=== PATIENT | female | born 1975 | race Caucasian/White ===

== ENCOUNTER 2016-11-30 09:33 | Emergency (ER) | payer OTHER ==
--- NOTE | 2016-11-30 11:09 | UC ---
Truncal Trauma HPI - HPI Summary HPI Summary: complaint of was at work running up stairs in the parking lot,slipped on the stiar and fell onto her left side of ribcage onstep and onto her hands and knees knocked the wind out of her occurred at 8:30 this morning on her way to work didn't hit her head constant stabbing pain in left ribcage with stabbing pain movement, laughing, breathing makes the pain worse took some ibuprofen for pain with minimal relief denies back pain - History Of Current Complaint Chief Complaint: UCTrauma Stated Complaint: RIB INJURY-FELL Time Seen by Provider: 11/30/16 11:04 Hx Obtained From: Patient Hx Last Menstrual Period: 11/24/16 - Allergies/Home Medications Allergies/Adverse Reactions: Allergies Allergy/AdvReac Type Severity Reaction Status Date / Time Ofloxacin [From Floxin] Allergy Rash Verified 11/19/14 18:09 PMH/Surg Hx/FS Hx/Imm Hx Previously Healthy: Yes Endocrine History Of: Reports: Thyroid Disease Respiratory History Of: Reports: Asthma - Hx OF CARRIES INHALER, LAST USED 2012 , Bronchitis - Hx OF, NONE SINCE 2012 GI/ History Of: Reports: Kidney Stones - Hx OF AGE 20 Neurological History Of: Reports: Migraine - Hx OF ,NONE IN YEARS - Surgical History Surgical History: Yes Surgery Procedure, Year, and Place: 1999 [facility] [place]. 2011 [facility] [place]. 2009 LEEP PROCEDURE [facility] [place]. 2014 THYROIDECTOMY [facility] [place] - Family History Known Family History: Negative: Cardiac Disease, Hypertension, Diabetes - Social History Occupation: Employed Full-time Alcohol Use: Occasionally Alcohol Amount: 2-3 DRINKS/MONTH Substance Use Type: None Smoking Status (MU): Never Smoked Tobacco Have You Smoked in the Last Year: No - Immunization History Most Recent Influenza Vaccination: FALL 2013 Most Recent Tetanus Shot: 2009 Most Recent Pneumonia Vaccination: 2011 Review of Systems Constitutional: Negative Skin: Negative Eyes: Negative ENT: Negative Respiratory: Negative Cardiovascular: Negative Gastrointestinal: Negative Genitourinary: Negative Motor: Negative Neurovascular: Negative Musculoskeletal: Other: - left chest wall pain Neurological: Negative Psychological: Negative All Other Systems Reviewed And Are Negative: Yes Physical Exam Triage Information Reviewed: Yes Appearance: No Pain Distress, Well-Nourished Vital Signs: Initial Vital Signs Temp 98.0 F 11/30/16 09:55 Pulse 88 11/30/16 09:55 Pulse Ox 100 11/30/16 09:55 Vital Signs Reviewed: Yes Eyes: Positive: Conjunctiva Clear ENT: Positive: Pharynx normal, TMs normal. Negative: Nasal congestion, Nasal drainage Neck: Positive: No Lymphadenopathy Respiratory: Positive: Lungs clear, Normal breath sounds, No respiratory distress, No accessory muscle use, Other: - left chest wall tenderness over 5th 6th 7th ribs anterior chest Cardiovascular: Positive: RRR, No Murmur, Pulses Normal Abdomen Description: Positive: Nontender, Soft Bowel Sounds: Positive: Present Musculoskeletal: Positive: No Edema Neurological: Positive: Alert Psychological Exam: Normal Skin: Positive: Other - abrasions on both palms and left knee Truncal Trauma Course/Dx - Course Course Of Treatment: exam completed - Differential Dx/Diagnosis Differential Diagnosis/HQI/PQRI: Chest Wall Contusion, Rib Fracture Provider Diagnoses: left chest wall contusion Discharge - Discharge Plan Condition: Stable Disposition: HOME Patient Education Materials: Rib Contusion (ED) Referrals: Hudson Morse MD [Primary Care Provider] - Additional Instructions: Increase fluids and rest Take acetaminophen or ibuprofen for fever or pain Please review your discharge instructions. If your symptoms do not improve please call your primary care provider or return to urgent care
--- NOTE | 2016-11-30 11:53 | RAD ---
HISTORY: Trauma, left rib pain, trauma COMPARISONS: None VIEWS: 5, Frontal view of the chest with frontal and oblique views of the left hemithorax FINDINGS: There is no displaced rib fracture or pneumothorax. The visualized lungs are clear. IMPRESSION: NO DISPLACED RIB FRACTURE OR PNEUMOTHORAX
[2016-11-30 12:17] VITALS: BP 124/76
== END 2016-11-30 12:23 | disposition home or self-care (01) ==
LOC: UCEAST 09:33
DX: S20.212A Contusion of left front wall of thorax, initial encounter (principal); W10.2XXA Fall (on)(from) incline, initial encounter; Y93.02 Activity, running; Y92.481 Parking lot as the place of occurrence of the external cause; Z88.1 Allergy status to other antibiotic agents; Z90.49 Acquired absence of other specified parts of digestive tract
CPT/HCPCS: 99211; G0463